=== PATIENT | male | born 1950 | race Caucasian/White ===

== ENCOUNTER 2018-02-22 14:06 | Outpatient (CLI) | END 2018-02-22 14:07 | disposition home or self-care (01) | LOC: FCC-LAB 14:06 | PROVIDERS: ATTEND Family Medicine | DX: M25.469 Effusion, unspecified knee (principal); I10 Essential (primary) hypertension | CPT/HCPCS: 36415; 80053; 80061; 85025 ==

== ENCOUNTER 2019-03-12 16:21 | Outpatient (CLI) | END 2019-03-12 16:22 | disposition home or self-care (01) | LOC: RHC-LAB 16:21 → FCC-LAB 16:22 | PROVIDERS: ATTEND Family Medicine | DX: R30.0 Dysuria (principal) | CPT/HCPCS: 87086 ==

== ENCOUNTER 2019-03-21 11:08 | Outpatient (CLI) | payer OTHER | END 2019-03-21 11:09 | disposition home or self-care (01) | LOC: RHC-LAB 11:08 → FCC-LAB 11:09 | PROVIDERS: ATTEND Family Medicine | DX: M54.5 Low back pain (principal) | CPT/HCPCS: 81001 ==